=== PATIENT | female | born 1980 | race Hispanic/Latino ===

== ENCOUNTER 2024-09-07 20:31 | Emergency (ER) | payer SELFPAY ==
[~2024-09-07] VITALS: Ht 157.5 cm; Wt 72.6 kg
[2024-09-07] MEDS ORDERED: CLONIDINE HCL 0.1 MG TAB ONE (20:59)
[2024-09-07] MEDS: ACETAMINOPHEN 325 MG TAB PO ONE (21:04)
[2024-09-07] MEDS: CLONIDINE HCL 0.1 MG TAB PO ONE (21:06)
[2024-09-07 21:07] LABS: BASOPHILS % 0.4 % (0.0-1.0); EOSINOPHILS % 0.2 % (0.0-6.0); HEMATOCRIT 35.9 % (34.2-44.1); HEMOGLOBIN 12.1 g/dL (12.0-16.0); LYMPHOCYTES # (AUTO) 1.8 (1.0-3.2); LYMPHOCYTES % 16.6 % (18.0-39.1); MEAN CORPUSCULAR HEMOGLOBIN 29.2 pg (28-32); MEAN CORPUSCULAR HGB CONC 33.7 g/dL (31-35); MEAN CORPUSCULAR VOLUME 86.7 fL (81-99); MONOCYTES # (AUTO) 0.6 (0.2-0.8); MONOCYTES % 5.1 % (4.4-11.3); NEUTROPHILS # (AUTO) 8.5 (2.1-6.9); NEUTROPHILS % 77.3 % (38.7-80.0); PLATELET COUNT 289 x10e3/uL (140-360); RED BLOOD COUNT 4.14 x10e6/uL (3.6-5.1); RED CELL DISTRIBUTION WIDTH 13.5 % (11.7-14.4); WHITE BLOOD COUNT 11.01 x10e3/uL (4.8-10.8)
[2024-09-07 21:27] LABS: CORONAVIRUS COVID-19 AG NEGATIVE (NEGATIVE); INFLUENZA A AG NEGATIVE (NEGATIVE); INFLUENZA B AG NEGATIVE (NEGATIVE)
[2024-09-07 21:33] LABS: ALBUMIN/GLOBULIN RATIO 1.1 (0.8-2.0); ANION GAP 14.8 mmol/L (8-16); BILIRUBIN,TOTAL 0.3 mg/dL (0.2-1.2); CALCIUM 9.1 mg/dL (8.4-10.2); CREATININE, SERUM 0.71 mg/dL (0.57-1.11); POTASSIUM 3.8 mmol/L (3.5-5.1); TOTAL PROTEIN 7.8 g/dL (6.5-8.1)
[2024-09-07 23:48] VITALS: PULSE 74; RESP 18; TEMP 98.8
[2024-09-08 00:05] VITALS: BP 130/87; PULSE 64; RESP 18; TEMP 98.2; O2SAT 99
== END 2024-09-08 00:05 | disposition home or self-care (01) ==
LOC: ER 20:38
DX: R51.9 Headache, unspecified (principal); I10 Essential (primary) hypertension; Z91.148 Patient's other noncompliance with medication regimen for other reason; E78.5 Hyperlipidemia, unspecified; E78.00 Pure hypercholesterolemia, unspecified; B20 Human immunodeficiency virus [HIV] disease
CPT/HCPCS: 36415; 70450; 71045; 80053; 84484; 85025; 93005; 99284

== ENCOUNTER 2024-09-11 18:20 | Emergency (ER) | payer SELFPAY ==
[~2024-09-11] VITALS: Ht 157.5 cm; Wt 72.6 kg
[2024-09-11] MEDS ORDERED: LISINOPRIL5 MG PO (18:48)
[2024-09-11 19:01] LABS: BASOPHILS % 0.3 % (0.0-1.0); EOSINOPHILS # (AUTO) 0.1 (0.0-0.4); EOSINOPHILS % 0.7 % (0.0-6.0); HEMATOCRIT 38.6 % (34.2-44.1); HEMOGLOBIN 13.2 g/dL (12.0-16.0); LYMPHOCYTES # (AUTO) 3.1 (1.0-3.2); LYMPHOCYTES % 30.1 % (18.0-39.1); MEAN CORPUSCULAR HEMOGLOBIN 29.3 pg (28-32); MEAN CORPUSCULAR HGB CONC 34.2 g/dL (31-35); MEAN CORPUSCULAR VOLUME 85.8 fL (81-99); MONOCYTES # (AUTO) 0.6 (0.2-0.8); MONOCYTES % 5.6 % (4.4-11.3); NEUTROPHILS # (AUTO) 6.4 (2.1-6.9); NEUTROPHILS % 62.9 % (38.7-80.0); PLATELET COUNT 321 x10e3/uL (140-360); RED CELL DISTRIBUTION WIDTH 13.4 % (11.7-14.4); WHITE BLOOD COUNT 10.16 x10e3/uL (4.8-10.8)
[2024-09-11 19:13] LABS: ALBUMIN/GLOBULIN RATIO 0.9 (0.8-2.0); BILIRUBIN,TOTAL 0.2 mg/dL (0.2-1.2); CALCIUM 9.3 mg/dL (8.4-10.2); CREATININE, SERUM 0.78 mg/dL (0.57-1.11); TOTAL PROTEIN 8.5 g/dL (6.5-8.1)
[2024-09-11] MEDS ORDERED: IOPAMIDOL 370 MG/ML 100 ML INFUS..BTL INJ ONE (19:20)
[2024-09-11] MEDS: SODIUM CHLORIDE 0.9% 1000ML 1,000 ML IV STA (19:27)
[2024-09-11] MEDS: ONDANSETRON HCL INJ 2MG/ML 2ML 2 MG/ML VIAL IV PRN (19:27)
[2024-09-11] MEDS: DICYCLOMINE HCL 20 MG/2 ML VIAL IM ONE (19:27)
[2024-09-11 19:34] LABS: CLARITY,URINE CLOUDY (CLEAR); GLUCOSE, URINE NEGATIVE (NEGATIVE); NITRITE,URINE NEGATIVE (NEGATIVE); PH,URINE 6 (5 - 7); PROTEIN,URINE DIPSTICK >=300 (NEGATIVE); RBC,URINE >50 /HPF (0-5); WBC,URINE (MAN) 21-50 /HPF (0-5)
[2024-09-11 19:35] LABS: BACTERIA,URINE FEW /HPF; COLOR,URINE RED (YELLOW); EPITHELIAL CELLS,URINE RARE /LPF
[2024-09-11 19:36] LABS: BILIRUBIN,URINE LARGE (NEGATIVE); KETONES,URINE 1+ (NEGATIVE); LEUKOCYTE ESTERASE ,URINE LARGE (NEGATIVE); URINE UROBILINOGEN 1 mg/dL (0.2 - 1)
[2024-09-11] MEDS ORDERED: DICYCLOMINE HCL20 MG PO (21:41)
[2024-09-11 22:00] VITALS: PULSE 60; RESP 16; TEMP 98.6; O2SAT 100
== END 2024-09-11 22:06 | disposition home or self-care (01) ==
LOC: ER 18:36
DX: R10.31 Right lower quadrant pain (principal); D25.9 Leiomyoma of uterus, unspecified; I10 Essential (primary) hypertension; E78.5 Hyperlipidemia, unspecified; B20 Human immunodeficiency virus [HIV] disease; E78.00 Pure hypercholesterolemia, unspecified
CPT/HCPCS: 36415; 74177; 80053; 81001; 83690; 84702; 85025; 99284; J0500; J2405; J7030; Q9967

== ENCOUNTER 2024-09-13 22:38 | Emergency (ER) | payer SELFPAY ==
[~2024-09-13] VITALS: Ht 157.5 cm; Wt 72.6 kg
[~2024-09-13 22:38] MED LIST: DICYCLOMINE HCL20 MG PO; LISINOPRIL5 MG PO
[2024-09-13 23:10] VITALS: TEMP 99.1
[2024-09-14 00:04] LABS: BASOPHILS # (AUTO) 0.1 (0.0-0.1); BASOPHILS % 0.3 % (0.0-1.0); EOSINOPHILS % 0.2 % (0.0-6.0); HEMATOCRIT 36.1 % (34.2-44.1); HEMOGLOBIN 12.2 g/dL (12.0-16.0); LYMPHOCYTES # (AUTO) 1.4 (1.0-3.2); LYMPHOCYTES % 9.7 % (18.0-39.1); MEAN CORPUSCULAR HEMOGLOBIN 29.7 pg (28-32); MEAN CORPUSCULAR HGB CONC 33.8 g/dL (31-35); MEAN CORPUSCULAR VOLUME 87.8 fL (81-99); MONOCYTES # (AUTO) 0.7 (0.2-0.8); MONOCYTES % 4.7 % (4.4-11.3); NEUTROPHILS # (AUTO) 12.5 (2.1-6.9); NEUTROPHILS % 84.7 % (38.7-80.0); PLATELET COUNT 305 x10e3/uL (140-360); RED BLOOD COUNT 4.11 x10e6/uL (3.6-5.1); RED CELL DISTRIBUTION WIDTH 13.2 % (11.7-14.4)
[2024-09-14 00:34] LABS: ALANINE AMINOTRANSFERASE 13 IU/L (0-55); ALBUMIN 3.8 g/dL (3.5-5.0); ALKALINE PHOSPHATASE 53 IU/L (40-150); ANION GAP 14.8 mmol/L (8-16); BILIRUBIN,TOTAL 0.3 mg/dL (0.2-1.2); BLOOD UREA NITROGEN 9 mg/dL (7-26); BUN/CREATININE RATIO 12 (6-25); CALCIUM 9.5 mg/dL (8.4-10.2); CARBON DIOXIDE 20 mmol/L (22-29); CHLORIDE 108 mmol/L (98-107); CREATINE KINASE 105 IU/L (29-168); CREATININE, SERUM 0.75 mg/dL (0.57-1.11); EST GLOMERULAR FILTRATION RATE 102 ML/MIN (>=60); GLUCOSE 116 mg/dL (74-118); POTASSIUM 3.8 mmol/L (3.5-5.1); SODIUM 139 mmol/L (136-145); TOTAL PROTEIN 7.5 g/dL (6.5-8.1)
[2024-09-14 01:02] LABS: INFLUENZA A AG NEGATIVE (NEGATIVE)
[2024-09-14 01:03] LABS: CORONAVIRUS COVID-19 AG NEGATIVE (NEGATIVE); INFLUENZA B AG NEGATIVE (NEGATIVE); TROPONIN I < 0.001 ng/mL (0-0.300)
[2024-09-14 01:18] LABS: STREPTOCOCCUS GRP A ANTIGEN NEGATIVE (NEGATIVE)
[2024-09-14 01:19] VITALS: PULSE 74; RESP 22
[2024-09-14 01:53] VITALS: BP 142/88; O2SAT 100
== END 2024-09-14 01:54 | disposition home or self-care (01) ==
LOC: ER 22:43
DX: R51.9 Headache, unspecified (principal); I10 Essential (primary) hypertension; R11.2 Nausea with vomiting, unspecified; E78.5 Hyperlipidemia, unspecified; B20 Human immunodeficiency virus [HIV] disease; E78.00 Pure hypercholesterolemia, unspecified; Z11.52 Encounter for screening for COVID-19; R94.31 Abnormal electrocardiogram [ECG] [EKG]
CPT/HCPCS: 36415; 70450; 71045; 80053; 82550; 83518; 83690; 83880; 84484; 85025; 87070; 93005; 99284